=== PATIENT | male | born 1990 | race Hispanic/Latino ===

== ENCOUNTER 2021-03-10 00:21 | Emergency (ER) | payer OTHER ==
[~2021-03-10] VITALS: Ht 185.4 cm; Wt 96.2 kg
[2021-03-10 00:23] VITALS: BP 118/74
[2021-03-10] MEDS ORDERED: HYDR25CA PO (02:20)
== END 2021-03-10 02:36 | disposition home or self-care (01) ==
LOC: EDH 00:21
DX: R07.89 Other chest pain (principal); E78.00 Pure hypercholesterolemia, unspecified; F41.9 Anxiety disorder, unspecified; E78.5 Hyperlipidemia, unspecified
CPT/HCPCS: 71045; 93005